=== PATIENT | female | born 2000 | race Caucasian/White ===

== ENCOUNTER 2024-07-09 07:24 | Day surgery (SDC) | payer OTHER ==
[2024-07-09] MEDS ORDERED: CEFAZOLIN SODIUM 1,000 MG VIAL ONE (11:33)
== END 2024-07-09 16:10 | disposition home or self-care (01) ==
LOC: CIR.AMB 07:24
PROVIDERS: ATTEND Surgery
DX: K81.1 Chronic cholecystitis (principal); J45.909 Unspecified asthma, uncomplicated; Z91.013 Allergy to seafood